=== PATIENT | female | born 1955 | race American Indian/Alaskan Native ===

== ENCOUNTER 2016-07-05 09:59 | Outpatient (CLI) | payer MEDICARE, OTHER ==
[2016-07-05] MEDS ORDERED: NACL ONE (10:44)
--- NOTE | 2016-07-05 15:23 | Cat Scan Report ---
CT LOWER EXTREMITY LEFT WITH AND WITHOUT CONTRAST INDICATION: Left knee swelling. COMPARISON: 11/03/2015 left knee radiographs. FINDINGS: Pre-and post contrast multiplanar CT of the left knee again demonstrates extensive streak artifact from arthroplasty components without evidence of loosening. Patent vessels. Predominantly suprapatellar/some prepatellar soft tissue swelling may again be present, greatest along the distal thigh close to the superior aspect of the femoral arthroplasty component with diffuse soft tissue/muscle edema anteriorly as on axial series 107, images 20-AP with possible fistula/skin tag/ulceration as on axial images 55-75 with a small focus of air as well. Superficial/skin edema also noted correspondingly below the knee along the imaged lower leg, axial images 151-249, though greatest about the level of the tibial stem tip as on axial image 157 with mild outward skin bowing/impending ulceration. No discrete bony destruction noted. Mild distal femoral cortical reaction as on axial images 68-80 again noted, possibly post surgical. Stable postsurgical patellar appearance as well. CONCLUSION: Left knee arthroplasty and soft tissue swelling again noted with suspected suprapatellar ulceration and impending infrapatellar ulceration, as detailed above. Please correlate. No drainable abscess identified. Thank you for the opportunity to participate in this patient's care.
== END 2016-07-05 10:00 | disposition home or self-care (01) ==
LOC: CT 09:59
PROVIDERS: ATTEND Internal Medicine Hematology & Oncology
DX: M25.462 Effusion, left knee (principal); Z96.652 Presence of left artificial knee joint
CPT/HCPCS: 36415; 73702; 82565; 84520; Q9967